=== PATIENT | female | born 1950 | race Caucasian/White ===

== ENCOUNTER 2017-02-07 14:54 | Inpatient (IN) | payer BC ==
[~2017-02-07] VITALS: Ht 162.6 cm; Wt 79.5 kg
[2017-02-07] MEDS ORDERED: GLUC15002 PO (15:04)
[2017-02-07] MEDS ORDERED: ASCO25TA PO (15:04)
[2017-02-07] MEDS ORDERED: FISH100049 PO (15:04)
[2017-02-07] MEDS ORDERED: CALC1TAB40 PO (15:04)
[2017-02-07] MEDS ORDERED: [UNRECOGNIZED DRUG - OTHER] (15:04)
[2017-02-07] MEDS ORDERED: VITA100067 PO (15:04)
[2017-02-07] MEDS ORDERED: HYDR-3363 PO (15:26)
[2017-02-07] MEDS ORDERED: QUET5TAB PO (15:26)
[2017-02-07] MEDS ORDERED: ESCI5SOL3 PO (15:26)
[2017-02-07 15:58] LABS: MEAN CORPUSCULAR HEMOGLOBIN 31.2 pg (27.0-33.0); MEAN CORPUSCULAR HGB CONC 34.2 g/dl (32.0-36.5); MEAN CORPUSCULAR VOLUME 91.4 fl (80.0-96.0); RED CELL DISTRIBUTION WIDTH 12.5 % (11.5-14.5); WHITE BLOOD COUNT 7.4 K/mm3 (4.0-10.0)
[2017-02-07 16:24] LABS: ALBUMIN 3.6 GM/DL (3.2-5.2); ALBUMIN/GLOBULIN RATIO 1.03 (1.00-1.93); ALKALINE PHOSPHATASE 60 U/L (45-117); ALT/SGPT 28 U/L (12-78); ANION GAP 10 MEQ/L (8-16); AST/SGOT 17 U/L (15-37); BILIRUBIN,DIRECT < 0.1 MG/DL (0.0-0.2); BILIRUBIN,TOTAL 0.2 MG/DL (0.2-1.0); BLOOD UREA NITROGEN 15 MG/DL (7-18); CALCIUM LEVEL 8.6 MG/DL (8.8-10.2); CARBON DIOXIDE LEVEL 26 MEQ/L (21-32); CHLORIDE LEVEL 102 MEQ/L (98-107); CREATININE FOR GFR 0.81 MG/DL (0.55-1.02); GLOMERULAR FILTRATION RATE > 60.0 (>45); GLUCOSE, FASTING 173 MG/DL (80-110); POTASSIUM SERUM 3.6 MEQ/L (3.5-5.1); SODIUM LEVEL 138 MEQ/L (136-145); TOTAL PROTEIN 7.1 GM/DL (6.4-8.2)
[2017-02-07 16:25] LABS: METHADONE URINE NEGATIVE (NEGATIVE)
[2017-02-07] MEDS ORDERED: QUEtiapine FUMARATE 50 MG TAB PO ONE (20:30)
[2017-02-08] MEDS: ASCORBIC ACID 500 MG TAB PO SCH ×2 (09:00→21:04)
[2017-02-08] MEDS ORDERED: LORazepam 2 MG TAB PO STA (11:39)
[2017-02-08] MEDS ORDERED: HYDR1CAP25 PO (12:16)
[2017-02-08] MEDS ORDERED: LISI10TA4 PO (12:19)
[2017-02-08] MEDS ORDERED: MAALOX 30 ML SUSP *UDC PO PRN (14:00)
[2017-02-08] MEDS ORDERED: OLANZapine ORAL DISINTEGRATING TAB 5MG PO PRN (14:15)
[2017-02-08] MEDS ORDERED: LORazepam 1 MG TAB PO PRN (14:15)
[2017-02-08] MEDS: VITAMIN D 1,000 INTERNATIONAL UNITS TABLET PO SCH (17:26)
[2017-02-08] MEDS: DIVALPROEX 250 MG TAB PO SCH ×2 (17:26→21:06)
[2017-02-08] MEDS: OMEGA-3 1050MG CAPSULE PO SCH (17:26)
[2017-02-08] MEDS: MOM 30ML SUSPENSION UDC PO PRN (17:28)
[2017-02-08] MEDS: QUEtiapine FUMARATE 100 MG TAB PO SCH (21:04)
[2017-02-09] MEDS: ACETAMINOPHEN TAB 650MG DOSE (2X325MG) PO PRN ×2 (03:20→15:09)
[2017-02-09 06:33] VITALS: BP 111/59
--- NOTE | 2017-02-09 08:46 | HPEPDOC ---
Medical History and Physical Date of Admission Feb 08, 2017 at 11:00 History and Physical PCP: Dr Woody Cárdenas [place] ATTENDING: Dr. Rinku Austin HPI: 66yoF admitted to [facility] for unspecified bipolar disorder, being medically examined today. No acute medical complaints today. Denies any fevers, chills, weakness, fatigue, TEJEDA, CP, SOB, cough, palpitations, abdominal pain, N/V/D or changes in bowel or bladder habits. PMHx: Bipolar disorder Depression Anxiety Insomnia Hypertension History of breast cancer 2011 PSHX: Tonsillectomy Cholecystectomy Right mastectomy 3 Buttock Abscess I&D SOCHX: Resides in: From [facility], here visiting family. 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 1 brother . Children: Alive, well Unexpected deaths due to medical reasons: None. ROS: As noted in HPI, otherwise 11pt ROS of systems reviewed and remarkable only for LMP NA postmenopausal. PE: GEN: 66 yo F, appears stated age. Well-nourished, well developed. No acute distress. Alert and oriented x 3. Rapid, tangential speech. Somewhat agitated at times. HEENT: Normocephalic, atraumatic. Pupils are equal, round, and reactive to light. Extraocular movements are intact. No nystagmus appreciated. Sclera are nonicteric. Conjunctiva without injection. Nose midline. Nasal turbinates without bogginess. EACs both patent BL. TMs both visualized and lopez with good cone of light, no bulging or erythema. No facial asymmetry. Moist mucous membranes. Dentition fair. Pharynx pink and moist, no cobblestoning. Neck supple , trachea midline. No lymphadenopathy or thyromegaly appreciated. CHEST: Regular rate and rhythm, +S1, +S2 LUNGS: Clear to auscultation bilaterally. No wheezes, rales, or rhonchi. Breathing appears symmetric and easy. Patient is speaking in full sentences. No accessory muscle use. ABD: Round, soft, non-tender, non-distended. +Bowel sounds throughout. No rebound or guarding. No costovertebral angle tenderness. EXT: Pulses 2+ bilaterally dorsalis pedis and radial. No lower extremity edema appreciated. SKIN: [place], dry, warm. Capillary refill <2sec. No rashes. NEURO: Alert and oriented x 3. Cranial nerves III-XII are intact. No focal deficits appreciated. EKG: Pending A&P: 66yoF admitted to [facility] for unspecified bipolar disorder 1. Psych. Plan per Psychiatry. Obtain baseline EKG to assure the safety of psychiatric medications as they can prolong the QT interval. 2. HTN. Continue Lisinopril 10 mg daily with hold parameters. 3. Follow up with PCP on discharge. 4. Staff member Rosina present throughout exam. Vital Signs Vital Signs Date Time Temp Pulse Resp B/P (MAP) Pulse Ox O2 Delivery O2 Flow Rate FiO2 02/09/17 06:33 98.2 106 18 111/59 (76) Room Air 02/08/17 11:29 97 Laboratory Data Labs 24H Item Value Date Time White Blood Count 7.4 K/mm3 02/07/17 1536 Red Blood Count 4.31 M/mm3 02/07/17 1536 Hemoglobin 13.5 g/dl 02/07/17 1536 Hematocrit 39.4 % 02/07/17 1536 Mean Corpuscular Volume 91.4 fl 02/07/17 1536 Mean Corpuscular Hemoglobin 31.2 pg 02/07/17 1536 Mean Corpuscular Hemoglobin Concent 34.2 g/dl 02/07/17 1536 Red Cell Distribution Width 12.5 % 02/07/17 1536 Platelet Count 251 k/mm3 02/07/17 1536 Sodium Level 138 MEQ/L 02/07/17 1536 Potassium Level 3.6 MEQ/L 02/07/17 1536 Chloride Level 102 MEQ/L 02/07/17 1536 Carbon Dioxide Level 26 MEQ/L 02/07/17 1536 Anion Gap 10 MEQ/L 02/07/17 1536 Blood Urea Nitrogen 15 MG/DL 02/07/17 1536 Creatinine 0.81 MG/DL 02/07/17 1536 Glomerular Filtration Rate > 60.0 02/07/17 1536 Fasting Glucose 173 MG/DL H 02/07/17 1536 Calcium Level 8.6 MG/DL L 02/07/17 1536 Total Bilirubin 0.2 MG/DL 02/07/17 1536 Aspartate Amino Transf (AST/SGOT) 17 U/L 02/07/17 1536 Direct Bilirubin < 0.1 MG/DL 02/07/17 1536 Alanine Aminotransferase (ALT/SGPT) 28 U/L 02/07/17 1536 Alkaline Phosphatase 60 U/L 02/07/17 1536 Albumin 3.6 GM/DL 02/07/17 1536 Albumin/Globulin Ratio 1.03 02/07/17 1536 Total Protein 7.1 GM/DL 02/07/17 1536 Thyroid Stimulating Hormone (TSH) 0.752 uIU/ML 02/07/17 1536 Salicylates Level < 1.7 MG/DL L 02/07/17 153 Urine Opiates Screen NEGATIVE 02/07/17 1536 Urine Methadone Screen NEGATIVE 02/07/17 1536 Acetaminophen Level < 2.0 UG/ML L 02/07/17 153 Urine Barbiturates Screen NEGATIVE 02/07/17 1536 Urine Phencyclidine Screen NEGATIVE 02/07/17 1536 Urine Amphetamines Screen NEGATIVE 02/07/17 1536 Urine Benzodiazepines Screen NEGATIVE 02/07/17 1536 Urine Cocaine Metabolite Screen NEGATIVE 02/07/17 153 Urine Cannabinoids Screen NEGATIVE 02/07/17 153 Ethyl Alcohol Level < 0.003 % 02/07/17 153 Home Medications Scheduled (Calcium & Magnesium + Zin 334-134-5 mg) 1 Tab Tab, 1 TAB PO DAILY (Glucosamine 1500 Complex) 1 Cap Cap, 1 CAP PO DAILY Ascorbic Acid (Vitamin C) 250 Mg Tab, 500 MG PO BID Escitalopram Oxalate (Escitalopram Oxalate) 5 Mg/5 Ml Felicia, 10 MG PO DAILY Fish Oil (Fish Oil 1000 mg) 1 Cap Cap, 1 CAP PO DAILY Hydroxyzine Pamoate (Hydroxyzine Pamoate) 25 Mg Cap, 25 MG PO TID Lisinopril (Lisinopril) 10 Mg Tab, 10 MG PO DAILY Quetiapine Fumerate (Quetiapine Fumarate) 50 Mg Tab, 50 MG PO QHS Vitamin D (Vitamin D) 1,000 Unit Cap, 1,000 UNIT PO DAILY Allergies Coded Allergies: No Known Allergies (Unverified , 02/07/17) Marlene Molina Feb 09, 2017 08:46
[2017-02-09] MEDS: LISINOPRIL 10 MG TAB PO SCH (09:00)
[2017-02-09] MEDS: VITAMIN D 1,000 INTERNATIONAL UNITS TABLET PO SCH (09:09)
[2017-02-09] MEDS: DIVALPROEX 250 MG TAB PO SCH ×3 (09:09→21:00)
[2017-02-09] MEDS: ASCORBIC ACID 500 MG TAB PO SCH ×2 (09:09→21:52)
[2017-02-09] MEDS: OMEGA-3 1050MG CAPSULE PO SCH (09:09)
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
[2017-02-09 18:17] VITALS: BP 135/71
--- NOTE | 2017-02-09 20:05 | ECGEPIP ---
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
[2017-02-09] MEDS: QUEtiapine FUMARATE 100 MG TAB PO SCH (21:52)
[2017-02-10 07:10] VITALS: BP 142/67
[2017-02-10] MEDS: LISINOPRIL 10 MG TAB PO SCH (09:00)
--- NOTE | 2017-02-10 09:05 | MHIPNPDOC ---
[facility] Progress Note Progress Note DATE OF SERVICE: 02/10/17 HISTORY: Patient is a 66-year-old female who states she was wrongly brought to the emergency room by her family after verbal altercation with family members. Per ER report, patient arrived in [facility] from [place] last and has been staying with her mother, ER report adds that mother is currently afraid of patient and that patient has capacity to become combative if provoked. Patient was recently admitted to psychiatric hospital in [place] for 6 days, has history of other prior hospitalization in 1982 post miscarriage. Patient states she came to [facility] for a family reunion and plans to return to [place] on February 24, where she lives with her . Patient indicates visit with family was going well until she was involved in aforementioned verbal altercation. Patient denies history of suicidal ideation, suicide attempt, self-injurious behavior, and homicidal ideation or behavior. Payroll And Benefits Analyst met with patient today to assess treatment progress on inpatient unit. Patient denied experiencing symptoms of anxiety and depression, denied auditory and visual hallucinations, denied suicidal and homicidal ideation, denied urge to engage in self-injurious behavior. Patient has refused to take medications aside from Seroquel which she states was effective for sleep last night, denies all medication side effects at time of interaction. Patient has also been provided with PRN medication to address constipation and patient denies experiencing GI related symptoms of discomfort. Patient refused to take lisinopril this morning noting, "I don't have high blood pressure so I'm not going to take that medication," was advised of risks associated with not taking blood pressure medication, patient verbalizes understanding. Payroll And Benefits Analyst attempted to discuss patient's recent report of male staff member in shower room, patient provided vague response indicating, "it's just another example of how bad this place is." Patient informed bond underwriter she feels "fine so I should be discharged because there is no reason for me to be here," indicated energy level and concentration and focus are normal, stated appetite is stable, and denied symptoms of physical pain. Patient then abruptly informed bond underwriter that she did not want to talk any longer for assessment purposes. Addendum: Verification received from [facility] the patient was hospitalized from 01/18-01/24/17 for major depressive disorder, severe, recurrent with psychosis. Of Note: Attempt made on 02/10/17 to reach patient's , Humberto ), to request background information on patient's symptom presentation, inpatient and outpatient treatment history, and history of psychotropic medication trials. Voicemail message left requesting return phone call. Addendum: Payroll And Benefits Analyst was informed by nursing that patient's brother called [facility] and requested that patient be evaluated by psychiatrist. Arrangements were made and patient was evaluated by psychiatrist with bond underwriter present for duration of evaluation. Psychiatrist has reviewed and counter signed this note which will outline psychiatrist's assessment with patient. Description of psychiatrist evaluation of patient: Patient met with bond underwriter and psychiatrist and agreed to respond to some of assessment questions posed by psychiatrist pertaining to reason for current hospitalization. Patient blamed family members for having had her "brought in against my will, I came here to visit with my mother and my aunt who are both dying and got into a disagreement with my family and now I'm here." Patient presented as delusional, irritable, angry, speech was pressured at times, tangential, circumstantial, dramatic at times, perseverative, exhibited hyper-religiosity, paranoia, and feels she is being persecuted by family and staff in hospital, made no mention of incident she alleges occurred yesterday reportedly involving male staff member entering shower area. Patient provided extended and highly detail oriented, rambling responses to psychiatrist's questions, noted that family altercation mainly stemmed from family wanting to utilize a medium to talk to brother at brother's "birthday democrat" which reportedly is scheduled to take place on 02/14/17. Patient denied physical altercation with brother, minimized concerns expressed by family regarding patient's potential for volatility. Patient escalated in psychiatrist's office pointing at psychiatrist and stating , "believers will have a curse against them and will if they use a medium, they will get sick. Kids will have diseases, garbage, there will be dire consequences if they use the medium. God isn't happy with her and that's why I am angry. 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 Patient was encouraged to take medications and she agreed to take Abilify ( however, later informed bond underwriter in hallway that she will not take Abilify and consequently refused), refuses to take Depakote, also declined to take lisinopril reiterating that she does not have high blood pressure and, therefore , will not take medication. Attempts were made to encourage patient to take psychotropic medications and to educate patient on the risks associated with not taking blood pressure medication, patient verbalized understanding. Patient stated Seroquel was effective in helping to improve sleep, denied all medication side effects except for "dry mouth," indicated side effect is non- distressing and manageable. Patient was able to maintain behavioral control for duration of assessment, however, when told she cannot be discharged until psychiatrically stabilized abruptly terminated evaluation and left psychiatrist' s office. VITALS: See below NEW TEST RESULTS: No new results MEDICAL/SURGICAL HISTORY: Hypertension, history of breast cancer in 2011 with right mastectomy, tonsillectomy, cholecystectomy, 3, buttock abscess I&D. Patient denies history of seizure or head injury. Labs on admission indicated elevated glucose and low calcium EKG pending UDS negative Will continue to evaluate need for head CT CURRENT MEDICATIONS: See below MENTAL STATUS EXAMINATION: General appearance: Patient is a 66-year old female who is irritable but engageable, makes fair eye contact, exhibits adequate personal hygiene, is dressed in hospital clothing, ambulates with steady gait, appears stated age. Speech: Generally of normal volume, loud at times, is pressured at times, spontaneous but tangential, circumstantial, controls conversation, when providing responses starts with descriptions that are seemingly unrelated, highly detail oriented Thought processes: Generally illogical and disorganized, tangential, notable circumstantiality Thought content: Tangential, paranoid, perseverative. Abstract reasoning and computation: Impaired Description of associations: Tangential and loose at times, intact at other times. Description of abnormal or psychotic thoughts: Denies suicidal or homicidal ideation, denies auditory or visual hallucinations, may be responding to internal stimuli, exhibits bizarre and paranoid, persecutory ideation, is religiously preoccupied, denies preoccupation with violence. Judgment: Poor. Insight: Poor. Orientation: A and O 3. Recent and remote memory: Requires further evaluation. Attention span and concentration: Limited. Fund of knowledge: Requires further evaluation. Mood: "I'm fine and I should be discharged today, I wouldn't be here at all except at my family has turned against me." Patient appears irritable Affect: Blunted DIAGNOSES: Unspecified psychotic disorder, rule out major depressive disorder with psychotic features, rule out schizoaffective disorder, rule out bipolar disorder, rule out psychiatric condition secondary to medical condition/ reaction to medication. ASSESSMENT: Patient is adjusting slowly to unit, is irritable, sarcastic, indicates she has been wrongly hospitalized, appears delusional with elements of paranoia, taoist preoccupation, and persecution. Patient is engageable, is refusing most medications, has otherwise been generally cooperative with staff, has presented with no overt behavior management challenges. Patient continues to deny history of ever being suicidal or homicidal. Patient denies need for current medication regimen but has been taking Seroquel for sleep and indicates she has been experiencing side effect of dry mouth only, denies all other medication side effects today. Patient was reminded she has PRN medications available to her should she feels she is experiencing other medication side effects. Patient has been educated on ways to mitigate medication side effects and was encouraged to notify nursing if symptoms persist, return, or worsen. Patient continues to rationalize events and behavior which led to current hospitalization, minimizes events and behavior which led to current hospitalization, denies that she is experiencing psychiatric symptoms and indicates that she believes her family is against her. Will continue to encourage patient to take psychiatric medications and will continue to monitor patient's response to medications and for medication side effects. Will also continue to evaluate patient's safety and discharge readiness. Patient indicates when prepared for discharge she would like to return to mother's home to finish visit in the [place] area, then plans to return to her home in [place] on February 24. patient was recently discharged from inpatient treatment in [place] and community services coordinator is attempting to procure additional hospital discharge documents. Patient states she did not have a follow-up outpatient appointment scheduled, is agreeable to following up with PCM, reiterates today she does not feel she needs to participate in outpatient psychotherapy or psychiatric medication management. MANAGEMENT PLAN: Continue to encourage patient to take psychotropic medication to address symptoms. Patient is currently agreeing to take Seroquel 100 mg po q hs Maintain safety precautions Patient to attend groups and participate in unit programming to develop coping strategies Engage patient in discharge planning process and arrange meeting with support system to ensure safe discharge planning when appropriate Patient to follow up with PCM upon discharge TIME SPENT: 70 minutes Vital Signs Vital Signs Date Time Temp Pulse Resp B/P (MAP) Pulse Ox O2 Delivery O2 Flow Rate FiO2 02/10/17 07:10 98.2 91 20 142/67 (92) 02/09/17 06:33 Room Air 02/08/17 11:29 97 Current Medications Current Medications Acetaminophen (Tylenol Tab) 650 mg Q6HP PRN PO HEADACHE or DISCOMFORT Last administered on 02/09/17 15:09; Start 02/08/17 at 14:00; Stop 03/10/17 at 13:59 Al Hydrox/Mg Hydrox/Simethicone (Mylanta) 30 ml Q4HP PRN PO HEARTBURN/ INDIGESTION; Start 02/08/17 at 14:00; Stop 03/10/17 at 13:59 Aripiprazole (AbiLIFY) 2.5 mg QHS PO Last administered on 02/08/17 21:06; Start 02/08/17 at 21:00; Stop 03/10/17 at 20:59 Ascorbic Acid (Vitamin C) 500 mg BID PO Last administered on 02/09/17 21:52; Start 02/08/17 at 09:00; Stop 03/10/17 at 08:59 Divalproex Sodium (Depakote) 250 mg TID PO Last administered on 02/09/17 09:09 ; Start 02/08/17 at 16:00; Stop 03/10/17 at 15:59 Fish Oil (Butler-3 (1050mg)) 1 ea DAILY PO Last administered on 02/09/17 09:09 ; Start 02/08/17 at 09:00; Stop 03/10/17 at 08:59 Home Med (Med Rec Complete!) ASDIRECTED XX ; Start 02/08/17 at 12:30; Stop at 12:30; Status DC Ibuprofen (Advil) 400 mg Q6HP PRN PO PAIN; Start 02/09/17 at 20:30; Stop at 20:29 Lisinopril (Prinivil) 10 mg DAILY PO ; Start 02/09/17 at 09:00; Stop 03/11/17 at 08:59 Lorazepam (Ativan) 1 mg Q8HP PRN PO ANXIETY/AGGITATION; Start 02/08/17 at 14:15 ; Stop 02/15/17 at 14:14 Lorazepam (Ativan) 2 mg STAT STAT PO ; Start 02/08/17 at 11:39; Stop 02/08/17 at 11:40; Status DC Magnesium Hydroxide (Milk Of Magnesia) 30 ml DAILYPRN PRN PO CONSTIPATION Last administered on 02/08/17 17:28; Start 02/08/17 at 14:00; Stop 03/10/17 at 13:59 Olanzapine (ZyPREXA ZYDIS) 5 mg Q4HP PRN PO ANXIETY/AGITATION; Start at 14:15; Stop 03/10/17 at 14:14 Quetiapine Fumarate (SEROquel) 100 mg QHS PO Last administered on 02/09/17 21: 52; Start 02/08/17 at 21:00; Stop 03/10/17 at 20:59 Vitamin D (Vitamin D) 1,000 units DAILY PO Last administered on 02/09/17 09:09 ; Start 02/08/17 at 09:00; Stop 03/10/17 at 08:59 Allergies Coded Allergies: No Known Allergies (Unverified , 02/07/17) Laya Villanueva Feb 10, 2017 09:05
[2017-02-10] MEDS: OMEGA-3 1050MG CAPSULE PO SCH (09:33)
[2017-02-10] MEDS: DIVALPROEX 250 MG TAB PO SCH ×3 (09:33→21:00)
[2017-02-10] MEDS: VITAMIN D 1,000 INTERNATIONAL UNITS TABLET PO SCH (09:33)
[2017-02-10] MEDS: ASCORBIC ACID 500 MG TAB PO SCH ×2 (09:33→21:48)
[2017-02-10] MEDS: POLYVINYL ALCOHOL OPHTH SOLN 15 ML(LIQUITEARS) OU PRN (16:14)
[2017-02-10] MEDS: PREPARATION H OINTMENT (HEMORRHOID) PR PRN ×2 (16:14→20:27)
[2017-02-10 18:00] VITALS: BP 158/88
[2017-02-10] MEDS: QUEtiapine FUMARATE 100 MG TAB PO SCH (21:48)
[2017-02-11 06:27] VITALS: BP 121/74
[2017-02-11] MEDS: ASCORBIC ACID 500 MG TAB PO SCH ×2 (08:18→20:48)
[2017-02-11] MEDS: OMEGA-3 1050MG CAPSULE PO SCH (08:18)
[2017-02-11] MEDS: VITAMIN D 1,000 INTERNATIONAL UNITS TABLET PO SCH (08:18)
[2017-02-11] MEDS: LISINOPRIL 10 MG TAB PO SCH (08:19)
[2017-02-11] MEDS: DIVALPROEX 250 MG TAB PO SCH ×3 (08:19→20:49)
[2017-02-11] MEDS: POLYVINYL ALCOHOL OPHTH SOLN 15 ML(LIQUITEARS) OU PRN ×3 (08:21→22:05)
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
--- NOTE | 2017-02-11 14:36 | REP ---
LEFT HAND SERIES: Four views of the left hand performed. There is no evidence of acute fracture or dislocation. No intrinsic osseous pathology is seen. IMPRESSION: No fracture or dislocation. Signed by Kahlil Ghosh MD 02/11/2017 08:18 P
[2017-02-11 18:00] VITALS: BP 139/70
[2017-02-11] MEDS: ACETAMINOPHEN TAB 650MG DOSE (2X325MG) PO PRN (20:48)
[2017-02-11] MEDS: PREPARATION H OINTMENT (HEMORRHOID) PR PRN (22:02)
[2017-02-11] MEDS: QUEtiapine FUMARATE 100 MG TAB PO SCH (22:03)
[2017-02-12 06:26] VITALS: BP 142/80
[2017-02-12] MEDS: LISINOPRIL 10 MG TAB PO SCH (09:00)
[2017-02-12] MEDS: DIVALPROEX 250 MG TAB PO SCH ×3 (09:00→21:00)
[2017-02-12] MEDS: POLYVINYL ALCOHOL OPHTH SOLN 15 ML(LIQUITEARS) OU PRN (09:04)
[2017-02-12] MEDS: OMEGA-3 1050MG CAPSULE PO SCH (09:04)
[2017-02-12] MEDS: VITAMIN D 1,000 INTERNATIONAL UNITS TABLET PO SCH (09:04)
[2017-02-12] MEDS: ASCORBIC ACID 500 MG TAB PO SCH ×2 (09:04→21:53)
[2017-02-12] MEDS: PREPARATION H OINTMENT (HEMORRHOID) PR PRN (09:05)
[2017-02-12 18:00] VITALS: BP 130/78
[2017-02-12] MEDS: QUEtiapine FUMARATE 50 MG TAB PO SCH (21:53)
[2017-02-13 06:55] VITALS: BP 120/74
[2017-02-13] MEDS: OMEGA-3 1050MG CAPSULE PO SCH (08:39)
[2017-02-13] MEDS: ASCORBIC ACID 500 MG TAB PO SCH ×2 (08:39→20:40)
[2017-02-13] MEDS: VITAMIN D 1,000 INTERNATIONAL UNITS TABLET PO SCH (08:39)
[2017-02-13] MEDS: DIVALPROEX 250 MG TAB PO SCH ×3 (08:40→20:42)
[2017-02-13] MEDS: LISINOPRIL 10 MG TAB PO SCH (08:40)
[2017-02-13] MEDS: POLYVINYL ALCOHOL OPHTH SOLN 15 ML(LIQUITEARS) OU PRN ×3 (09:48→20:41)
[2017-02-13 18:00] VITALS: BP 130/88
[2017-02-13] MEDS: QUEtiapine FUMARATE 50 MG TAB PO SCH (22:12)
--- NOTE | 2017-02-13 22:58 | IPN ---
DATE: 02/12/2017 CHIEF COMPLAINT: Feels upset. SUBJECTIVE: Seen for followup, in the presence of staff. Says is upset that she is here, spoke of her family lying about her behavior, and having her admitted. Says has been doing well, and that her sleep and appetite have been good. Denies any suicidal thoughts or intents. MENTAL STATUS EXAMINATION: Neat, somewhat guarded, but cooperative, no psychomotor retardation. Speech is spontaneous, coherent for the most part, but tangential at times, with an irritable affect at times, denies any suicidal thoughts or intents. No homicidal ideas or intents. Does not appear internally preoccupied at present. No fluctuation of consciousness. Judgment and insight are compromised. ASSESSMENT: Unspecified psychotic disorder. The possibility of a mood disorder associated with psychosis also needs to be considered, such as bipolar disorder or possibly schizoaffective disorder. There has been a history of what appears to have been manic-like symptoms. PLAN: Continue current care, look at obtaining collateral information. She feels that the medication she is on, she is currently on Seroquel, is too sedating, wishes for a decrease. I feel that is reasonable for now, we will decrease it to 50 mg at night, to help enhance a therapeutic alliance as well, as she has declined using the other medications prescribed, including Abilify and Depakote. She is to be encouraged to participate in activities in the unit.
[2017-02-14 07:17] VITALS: BP 132/78
[2017-02-14 09:00] VITALS: BP 132/78
[2017-02-14] MEDS: LISINOPRIL 10 MG TAB PO SCH (09:00)
[2017-02-14] MEDS: DIVALPROEX 250 MG TAB PO SCH ×3 (09:00→21:00)
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
[2017-02-14] MEDS: VITAMIN D 1,000 INTERNATIONAL UNITS TABLET PO SCH (09:19)
[2017-02-14] MEDS: ASCORBIC ACID 500 MG TAB PO SCH ×2 (09:19→22:23)
[2017-02-14] MEDS: OMEGA-3 1050MG CAPSULE PO SCH (09:19)
[2017-02-14] MEDS: POLYVINYL ALCOHOL OPHTH SOLN 15 ML(LIQUITEARS) OU PRN ×2 (15:44→20:40)
[2017-02-14 18:12] VITALS: BP 132/80
[2017-02-14 19:56] VITALS: BP 132/80
[2017-02-14] MEDS: QUEtiapine FUMARATE 50 MG TAB PO SCH (22:22)
[2017-02-15] MEDS: LISINOPRIL 10 MG TAB PO SCH (08:11)
[2017-02-15] MEDS: DIVALPROEX 250 MG TAB PO SCH ×3 (08:11→21:00)
[2017-02-15] MEDS: VITAMIN D 1,000 INTERNATIONAL UNITS TABLET PO SCH (08:13)
[2017-02-15] MEDS: ASCORBIC ACID 500 MG TAB PO SCH ×2 (08:13→22:42)
[2017-02-15] MEDS: POLYVINYL ALCOHOL OPHTH SOLN 15 ML(LIQUITEARS) OU PRN ×3 (08:13→18:47)
[2017-02-15] MEDS: OMEGA-3 1050MG CAPSULE PO SCH (08:13)
[2017-02-15] MEDS: IBUPROFEN 400 MG TAB PO PRN (08:14)
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
[2017-02-15 18:10] VITALS: BP 146/90
[2017-02-15] MEDS: QUEtiapine FUMARATE 50 MG TAB PO SCH (22:42)
[2017-02-16 06:44] VITALS: BP 140/92
[2017-02-16] MEDS: LISINOPRIL 10 MG TAB PO SCH (08:38)
[2017-02-16] MEDS: DIVALPROEX 250 MG TAB PO SCH ×2 (08:39→16:00)
[2017-02-16] MEDS: ASCORBIC ACID 500 MG TAB PO SCH ×2 (08:40→22:09)
[2017-02-16] MEDS: VITAMIN D 1,000 INTERNATIONAL UNITS TABLET PO SCH (08:40)
[2017-02-16] MEDS: OMEGA-3 1050MG CAPSULE PO SCH (08:40)
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
[2017-02-16] MEDS: MOM 30ML SUSPENSION UDC PO PRN (10:36)
[2017-02-16] MEDS: POLYVINYL ALCOHOL OPHTH SOLN 15 ML(LIQUITEARS) OU PRN ×2 (10:38→18:07)
[2017-02-16] MEDS: LURASIDONE 20 MG TAB (LATUDA) PO SCH (18:00)
[2017-02-16 18:23] VITALS: BP 150/90
[2017-02-16] MEDS: QUEtiapine FUMARATE 50 MG TAB PO SCH (22:09)
[2017-02-17 07:14] VITALS: BP 144/79
[2017-02-17] MEDS: POLYVINYL ALCOHOL OPHTH SOLN 15 ML(LIQUITEARS) OU PRN ×2 (08:27→21:57)
[2017-02-17] MEDS: OMEGA-3 1050MG CAPSULE PO SCH (08:27)
[2017-02-17] MEDS: ASCORBIC ACID 500 MG TAB PO SCH ×2 (08:27→21:57)
[2017-02-17] MEDS: VITAMIN D 1,000 INTERNATIONAL UNITS TABLET PO SCH (08:27)
[2017-02-17] MEDS: LISINOPRIL 10 MG TAB PO SCH (08:28)
[2017-02-17] MEDS: PREPARATION H OINTMENT (HEMORRHOID) PR PRN (09:51)
--- NOTE | 2017-02-17 11:40 | IPNPDOC ---
Date Seen The patient was seen on 02/17/17. Progress Note HPI: 66yoF admitted to [facility] for unspecified bipolar disorder, requested to reevaluate today for a stray of rectal pain. Patient states she does have a history of external hemorrhoids. Colonoscopy performed according to the patient approximately 4 years ago indicated benign polyps. Denies any fevers, chills, weakness, fatigue, TEJEDA, CP, SOB, cough, palpitations, abdominal pain, N/V/D or changes in bowel or bladder habits. PMHx: Bipolar disorder Depression Anxiety Insomnia Hypertension History of breast cancer 2011 PSHX: Tonsillectomy Cholecystectomy Right mastectomy 3 Buttock Abscess I&D PE: GEN: 66 yo F, appears stated age. Well-nourished, well developed. No acute distress. Alert and oriented x 3. Rapid, tangential speech. Somewhat agitated at times. HEENT: Normocephalic, atraumatic. Pupils are equal, round, and reactive to light. Extraocular movements are intact. No nystagmus appreciated. Sclera are nonicteric. Conjunctiva without injection. Nose midline. Nasal turbinates without bogginess. No facial asymmetry. Moist mucous membranes. Dentition fair. Pharynx pink and moist, no cobblestoning. Neck supple, trachea midline. No lymphadenopathy or thyromegaly appreciated. CHEST: Regular rate and rhythm, +S1, +S2 LUNGS: Clear to auscultation bilaterally. No wheezes, rales, or rhonchi. Breathing appears symmetric and easy. Patient is speaking in full sentences. No accessory muscle use. ABD: Round, soft, non-tender, non-distended. +Bowel sounds throughout. No rebound or guarding. No costovertebral angle tenderness. EXT: Pulses 2+ bilaterally dorsalis pedis and radial. No lower extremity edema appreciated. SKIN: [place], dry, warm. Capillary refill <2sec. No rashes. NEURO: Alert and oriented x 3. Cranial nerves III-XII are intact. No focal deficits appreciated. External hemorrhoids were noted, there was no edema, erythema, bleeding, or tenderness with palpation. EK02/09/17 SINUS RHYTHM POSSIBLE LEFT ATRIAL ENLARGEMENT Otherwise normal A&P: 66yoF admitted to [facility] for unspecified bipolar disorder 1. Psych. Plan per Psychiatry. Obtain baseline EKG to assure the safety of psychiatric medications as they can prolong the QT interval. 2. HTN. Continue Lisinopril 10 mg daily with hold parameters. 3. Follow up with PCP on discharge. 4. External hemorrhoids. Continue Preparation H, Tucks pads as needed. Monitor. Outpatient follow-up with PCP. 5. Staff member Cherri present throughout exam. VS, I&O, 24H, Fishbone Vital Signs/I&O Vital Signs Date Time Temp Pulse Resp B/P (MAP) Pulse Ox O2 Delivery O2 Flow Rate FiO2 02/17/17 07:14 98.5 101 18 144/79 (100) Room Air 02/14/17 19:56 97 Marlene Molina Feb 17, 2017 11:40
[2017-02-17 18:00] VITALS: BP 138/80
[2017-02-17] MEDS: LURASIDONE 20 MG TAB (LATUDA) PO SCH (18:00)
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
[2017-02-17] MEDS: QUEtiapine FUMARATE 50 MG TAB PO SCH (21:57)
[2017-02-18 06:28] VITALS: BP 150/70
[2017-02-18] MEDS: LISINOPRIL 10 MG TAB PO SCH (09:00)
[2017-02-18] MEDS: POLYVINYL ALCOHOL OPHTH SOLN 15 ML(LIQUITEARS) OU PRN (09:32)
[2017-02-18] MEDS: OMEGA-3 1050MG CAPSULE PO SCH (09:32)
[2017-02-18] MEDS: VITAMIN D 1,000 INTERNATIONAL UNITS TABLET PO SCH (09:33)
[2017-02-18] MEDS: ASCORBIC ACID 500 MG TAB PO SCH (09:33)
[2017-02-18] MEDS: IBUPROFEN 400 MG TAB PO PRN (11:57)
--- NOTE | 2017-02-18 15:33 | MHDSPDOC ---
[facility] Discharge Summary Discharge Summary DATE OF ADMISSION: Feb 08, 2017 at 11:00 DATE OF DISCHARGE: Feb 18, 2017 DISCHARGE DIAGNOSES: Unspecified psychotic disorder, rule out bipolar disorder, rule out major depressive disorder with psychotic features, rule out schizoaffective disorder REASON FOR ADMISSION: Patient is a 66-year-old female who states she was wrongly brought to the emergency room by her family after verbal altercation with family members. Per ER report, patient arrived in [facility] from [place] last and has been staying with her mother, ER report adds that mother is currently afraid of patient and that patient has capacity to become combative if provoked. Patient was recently admitted to psychiatric hospital in [place] for 6 days, has history of other prior hospitalization in 1982 post miscarriage. Patient states she came to [facility] for a family reunion and plans to return to [place] on February 24, where she lives with her . Patient indicates visit with family was going well until she was involved in aforementioned verbal altercation. Patient denies history of suicidal ideation, suicide attempt, self-injurious behavior, and homicidal ideation or behavior. Controller Mechanic met with patient this morning to complete assessment on the inpatient unit. Patient is refusing to take Latuda which was prescribed after patient refused to take Depakote and Abilify, has been taking Seroquel for sleep, declines to permit dosing adjustment. When asked about medication side effects patient states she experiences dry mouth and constipation, today for first time she reports she has also been experiencing "night sweats." Controller Mechanic again attempted to educate patient on ways to mitigate side effects, and reminded patient she may refuse medication if she feels she is experiencing intolerable side effects. Patient informed automatic typewriter inspector that she was already familiar with mitigation strategies. Controller Mechanic again attempted to discuss medication options with patient and, again, encouraged patient to take medications. Patient indicated she has no intention of taking psychotropic medications other than the Seroquel. Patient was provided with diagnostic information per her request. Patient again today would ask automatic typewriter inspector questions demanding answers and then would talk over automatic typewriter inspector when automatic typewriter inspector attempted to provide responses. Patient continues to appear irritable, agitated during interaction, mood appears more labile today , remains argumentative, is observed to be calm in hallways at other times, at other times irritated on telephone. Patient continues to have poor recognition of boundaries, invades automatic typewriter inspector's personal space at times to emphasize her position on medications and hospitalization. Patient's group participation remains restricted due to her attempting to dominate group and provide instruction to other patients pertaining to mental health treatment. Patient was again encouraged to focus on her own treatment and to permit staff to provide treatment and education to other patients on unit. Patient is aware that she has a hearing tomorrow and reiterates today that she intends to pollo Gena and her family members for "violating my HIPAA and forcing me in this place." Patient then abruptly ended interaction with automatic typewriter inspector indicating she no longer wanted to meet. Per EMR, patient slept 6.25 hours last night, she is eating and voiding, today indicates she has a "rectal sore but I've had for a long time" that is causing intermittent irritation, automatic typewriter inspector made arrangements for patient to be evaluated by PA who has indicated patient has hemorrhoid, patient has been provided with PRN medication to address discomfort. Patient presented with no signs of acute distress at time of interaction. Addendum: Patient attended treatment team on 02/17/17 and indicated if art consultant determines that she should be released on Tuesday she intends to discharge to home of mother. Patient declines to allow communication with mother but does agree to sign an EVELYN for support coordinator to communicate with another brother. breastfeeding program coordinator indicates she has communicated with brother, Levar , who has indicated that patient may get her belongings from mother's house, but may not stay at mother's house due to safety concerns and mother's inability to care for patient in her current state. CONSULTANTS INVOLVED: Medicine, psychiatry, Judiciary system. TREATMENT AND PROGRESS ON THE UNIT : pt refused to participate in any treatment recommendations aside from a low dose of seroquel 50 mg at hs. She was observed arguing on the phone day after day with various family members. She requested a court hearing which was held today and she is released from involuntary admission on our unit. She will be discharged and per her request no follow up appointments are to be made and no prescriptions ordered. Pt intends to remain either in a hotel or with family and then return to [place] on February 24, 2017. HOSPITAL COURSE: as above DISCHARGE ASSESSMENT: pt discharged per order of the art consultant. MEDICAL/SURGICAL HISTORY: Hypertension, history of breast cancer in 2011 with right mastectomy, tonsillectomy, cholecystectomy, 3, buttock abscess I&D. Patient denies history of seizure or head injury. Labs on admission indicated elevated glucose and low calcium 02/09/17 EKG SINUS RHYTHM POSSIBLE LEFT ATRIAL ENLARGEMENT Otherwise normal. Is asymptomatic, clinical consultation completed with recommendation made for follow-up outpatient UDS negative 02/11/[address] ordered - patient continues to refuse 02/11/17 X-ray to hand - normal, completed due to patient apparently falling in yoga MENTAL STATUS EXAMINATION ON DISCHARGE: Patient is a 66-year old female, who is medium frame, dark hair, nicely and casually attired. Speech is spontaneous Language skills are intact Thought processes including: tangential, paranoid, perseverative. Thought content: illogical Abstract reasoning, and computation:poor Description of associations:loose Description of abnormal or psychotic thoughts: Denies suicidal or homicidal ideation, denies auditory or visual hallucinations, may be responding to internal stimuli, exhibits bizarre and paranoid, persecutory ideation, is religiously preoccupied, denies preoccupation with violence. Judgment: limited. Insight: limited. Orientation to well oriented in all spheres. Recent and remote memory: intact Attention span and concentration: good. Fund of knowledge: full Mood: irritable. Affect: congruent MEDICATIONS ON DISCHARGE: Seroquel 50 mg po qhs prn #7/0 PLAN/FOLLOWUP ARRANGEMENTS: none per pts instructions, plans on returning to [place]. The amount of time spent in the coordination of care for this patient was approximately 30 minutes. Vital Signs/I&Os Vital Signs Date Time Temp Pulse Resp B/P (MAP) Pulse Ox O2 Delivery O2 Flow Rate FiO2 02/18/17 06:28 97.7 94 18 150/70 (96) 02/17/17 07:14 Room Air 02/14/17 19:56 97 Medications Scheduled (Calcium & Magnesium + Zin 334-134-5 mg) 1 Tab Tab, 1 TAB PO DAILY, (Reported) (Glucosamine 1500 Complex) 1 Cap Cap, 1 CAP PO DAILY, (Reported) Ascorbic Acid (Vitamin C) 250 Mg Tab, 500 MG PO BID, (Reported) Escitalopram Oxalate (Escitalopram Oxalate) 5 Mg/5 Ml Felicia, 10 MG PO DAILY, ( Reported) Fish Oil (Fish Oil 1000 mg) 1 Cap Cap, 1 CAP PO DAILY, (Reported) Hydroxyzine Pamoate (Hydroxyzine Pamoate) 25 Mg Cap, 25 MG PO TID, (Reported) Lisinopril (Lisinopril) 10 Mg Tab, 10 MG PO DAILY, (Reported) Quetiapine Fumerate (Quetiapine Fumarate) 50 Mg Tab, 50 MG PO QHS, (Reported) Vitamin D (Vitamin D) 1,000 Unit Cap, 1,000 UNIT PO DAILY, (Reported) Scheduled PRN Quetiapine Fumerate (Quetiapine Fumarate) 50 Mg Tab, 50 MG PO QHSP PRN for INSOMNIA for 7 Days, #7 Allergies Coded Allergies: No Known Allergies (Unverified , 02/07/17) Magnolia Hayes Feb 18, 2017 15:32
[2017-02-18] MEDS ORDERED: QUET5TAB PO (15:41)
== END 2017-02-18 16:00 | disposition home or self-care (01) | DRG 751 ==
LOC: M ED 14:54 → M ED INP 02-08 11:00 → M PSY 02-08 12:56
PROVIDERS: ADMIT Psychiatry & Neurology Psychiatry; ATTEND Psychiatry & Neurology Psychiatry
DX: F29 Unspecified psychosis not due to a substance or known physiological condition (principal); F31.9 Bipolar disorder, unspecified; F25.9 Schizoaffective disorder, unspecified; K64.4 Residual hemorrhoidal skin tags; I10 Essential (primary) hypertension; Z79.899 Other long term (current) drug therapy; Z85.3 Personal history of malignant neoplasm of breast; Z90.49 Acquired absence of other specified parts of digestive tract; Z90.11 Acquired absence of right breast and nipple; Z84.1 Family history of disorders of kidney and ureter; Z80.42 Family history of malignant neoplasm of prostate; Z81.8 Family history of other mental and behavioral disorders; Z81.1 Family history of alcohol abuse and dependence; Z80.0 Family history of malignant neoplasm of digestive organs